=== PATIENT | male | born 1970 | race Caucasian/White ===

== ENCOUNTER 2022-06-01 12:54 | Outpatient (CLI) | payer MEDICAID, SELFPAY ==
--- NOTE | ~2022-06-01 | XR_ITS ---
EXAMINATION: XR shoulder RT min 2V INDICATION: Right shoulder pain TECHNIQUE: Four views of the right shoulder are submitted. COMPARISON: 03/10/2008 FINDINGS: Normal alignment. No fracture. There is mild osteoarthritis of the acromioclavicular joint. Soft tissues are unremarkable. IMPRESSION: 1. Mild osteoarthritis without acute osseous abnormality. Reviewed, dictated and finalized at location B.
== END 2022-06-01 12:55 | disposition home or self-care (01) ==
PROVIDERS: PCP Nurse Practitioner Adult Health; Visit Provider Nurse Practitioner Adult Health
DX: M25.511 Pain in right shoulder (principal); M19.011 Primary osteoarthritis, right shoulder
CPT/HCPCS: 73030

== ENCOUNTER 2022-06-14 16:07 | Outpatient (CLI) | payer OTHER, SELFPAY ==
--- NOTE | ~2022-06-14 | CT_ITS ---
EXAMINATION: CT shoulder RT wo con DATE: 06/14/2022 16:33 INDICATION: Right shoulder pain. TECHNIQUE: Computed tomography (CT) of the right shoulder was performed without intravenous contrast. Automated exposure control and iterative reconstruction technique were employed. The dose-length pro duct was 593.09 mGy-cm. COMPARISON: Right shoulder radiographs 06/01/2022 FINDINGS: Bone alignment is normal. No fracture. There is mild osteoarthritis of glenohumeral joint a nd moderate osteoarthritis of acromioclavicular joint. The musculature is normal. IMPRESSION: 1. Polyarticular osteoarthritis. Reviewed, dictated and finalized at location A.
== END 2022-06-14 16:08 | disposition home or self-care (01) ==
PROVIDERS: PCP Nurse Practitioner Adult Health; Visit Provider Nurse Practitioner Adult Health
DX: M19.011 Primary osteoarthritis, right shoulder (principal)
CPT/HCPCS: 73200

== ENCOUNTER 2022-06-28 17:23 | Outpatient (CLI) | payer OTHER, SELFPAY ==
--- NOTE | ~2022-06-28 | CT_ITS ---
EXAMINATION: CT abdomen pelvis wo con DATE: 06/28/2022 17:43 INDICATION: Incisional hernia without obstruction or gangrene TECHNIQUE: Computed tomography (CT) of the abdomen and pelvis was performed without intravenous contr ast. The dose-length product (DLP) was 362.57 mGy-cm. Automated exposure control and iterative recons truction technique were employed. COMPARISON: None FINDINGS: The lung bases are clear. The heart size is normal. Within the limitations of noncontrast e xamination, the liver, spleen, pancreas, gallbladder, and adrenal glands are normal. The kidneys are unremarkable. No pathologically enlarged abdominal or pelvic lymph nodes are identified. There is no free intraperitoneal gas or evidence of bowel obstruction. There are surgical clips adjacent to the r ight kidney. There is a midline epigastric hernia containing fat with an approximately 11 mm neck loc ated 6 cm above the umbilicus. There is a midline ventral hernia with a 2.1 cm neck located 2.4 cm ab ove the umbilicus. There is a tiny midline ventral hernia containing fat just above the umbilicus wit h a 2 mm neck. There is a tiny umbilical hernia containing fat. There is mild lumbar spondylosis. IMPRESSION: 1. Fat-containing midline ventral hernias as detailed above. Reviewed, dictated and finalized at location D.
== END 2022-06-28 17:24 | disposition home or self-care (01) ==
LOC: ANHIMG 17:28
PROVIDERS: PCP Nurse Practitioner Adult Health; Visit Provider Surgery
DX: K43.2 Incisional hernia without obstruction or gangrene (principal); K43.9 Ventral hernia without obstruction or gangrene; K42.9 Umbilical hernia without obstruction or gangrene
CPT/HCPCS: 74176

== ENCOUNTER 2022-07-05 00:24 | Day surgery (SDC) | payer OTHER, SELFPAY ==
[2022-06-23 13:54] VITALS: BMI 25.2
[2022-07-05 10:02] VITALS: BP 116/61; PULSE 52; RESP 16; TEMP 36.4; O2SAT 100; BMI 26.4
--- NOTE | 2022-07-05 10:05 | WPDANESEPPF ---
Anes - Initial Pre Proc Eval Procedure: Operation Date: 07/05/22 11:15 Proposed Procedures p Screening Colonoscopy - Nash Simmons MD Date/Time: 07/05/22 10:05 Surgeon: Nash Simmons MD Pre Op Diagnosis: neoplasm screening Patient Data Age: 51 Gender: M Height: 1.78 m Weight: 83.6 kg Last Vital Signs Temp 36.4 C 07/05/22 10:02 Pulse 52 L 07/05/22 10:02 Resp 16 07/05/22 10:02 BP 116/61 07/05/22 10:02 Pulse Ox 100 07/05/22 10:02 O2 Del Method Room Air 07/05/22 10:02 Allergies Allergy/AdvReac Type Severity Reaction Status Date / Time No Known Allergies Allergy Verified 07/05/22 10:01 Home Medications Medication Instructions Recorded Confirmed Type syringe with needle 3 mL 25 gauge 06/23/22 07/05/22 History x 1 (BD Luer-Randy Syringe) Patient hx anesthesia problems: none Family hx anesthesia problems: none Results Review: All pre-operative results and documents have been reviewed as part of the pre-operative evaluation. [facility] Past Medical History Medical History Abdominal pain Allergies Anxiety Colon cancer screening Dysphagia History of blood transfusion Ventral hernia Surgical History Surgical History Elbow injury History of kidney surgery R History of laparotomy Family History Family History Father Hypertension Heart disease Parkinsons COPD (chronic obstructive pulmonary disease) Diabetes mellitus Social History Social History Social History: everyday caffeine use- 2 cups of coffee daily Years smoked: 5 Smoking status: Former smoker Tobacco type: cigarettes Alcohol intake: never Substance use: never Substance use type: does not use Living arrangements: with family Additional living arrangements comments: Patient is . no children. Additional occupation/education comments: self-employed Gender identity (if verbalized by the patient): Male Sexual Orientation (if Verbalized by the Patient): Straight or Heterosexual Spiritual care concerns: No Anes - Eval Final PreProcedure Day of Procedure 07/05/22 10:05 Patient weight: overweight Heart: regular rate and rhythm Lungs: clear to auscultation and normal air movement Airway: Mallampati scale class II Neurological: alert and oriented Last oral intake: >/= 8 hours ASA classification: II Emergent: no Anesthetic plan: proceed Anesthesia type and monitoring: general GIVS Results Review: All pre-operative results and documents have been reviewed as part of the pre-operative evaluation. Informed Consent: The patient's anesthetic plan and its attendant risks and benefits were discussed with the patient/family/POA. Questions were solicited and answers provided to the satisfaction of the patient/family/POA.
[2022-07-05] MEDS: LACTATED RINGERS 1,000 ML 150 ML IV CONT (10:14)
--- NOTE | 2022-07-05 10:22 | WPDHPUPDATE1 ---
History and Physical Update Update Date/Time: 07/05/22 10:22 History and Physical has been reviewed, including an updated exam of the patient. There are NO changes in the patient's condition. Risks, benefits, and alternatives have been discussed and questions answered. Patient agrees to proceed with procedure.
[2022-07-05 10:39] VITALS: BP 107/66; PULSE 60; RESP 16; O2SAT 99
[2022-07-05 10:49] VITALS: BP 104/53; PULSE 54; RESP 17; O2SAT 100
[2022-07-05 10:59] VITALS: BP 119/57; PULSE 57; RESP 14; O2SAT 100
== END 2022-07-05 11:04 | disposition home or self-care (01) ==
PROVIDERS: PCP Nurse Practitioner Adult Health; Visit Provider Internal Medicine Gastroenterology
PROC: 0DJD8ZZ Inspection of Lower Intestinal Tract, Via Natural or Artificial Opening Endoscopic (ICD-10-PCS; CPT 45378; principal; 2022-07-05 11:15)
DX: Z12.11 Encounter for screening for malignant neoplasm of colon (principal); K64.8 Other hemorrhoids; F41.9 Anxiety disorder, unspecified; R13.10 Dysphagia, unspecified; Z87.891 Personal history of nicotine dependence; K43.9 Ventral hernia without obstruction or gangrene
CPT/HCPCS: 45378; J2704; J7120

== ENCOUNTER 2022-09-15 14:35 | Observation (INO) | payer OTHER, SELFPAY ==
[2022-09-08 10:55] VITALS: BMI 24.3
--- NOTE | 2022-09-08 11:00 | PC.NURSE ---
Report to the Outpatient Waiting Room, entrance under the green pavilion located off [facility], at time 0630 on date 09/14/22. Planned Procedure Time: 0830. Time changes happen often and if your time is changed the preop area will call you the afternoon before. - You and your visitor will be asked to self-screen and do not enter if you have any COVID symptoms. - We encourage only one visitor and NO visitors under age 16 are allowed at this time. Your visitor will receive communication by the phone number that is given day of service. - The patient visitor is requested to social distance or may leave the building when not with patient due to restrictions. - A mask is OPTIONAL within the hospital. Patients may have clear liquids (water, carbonated beverages, clear teas, apple juice) until 3 hours prior to surgery with a maximum of 20 ounces. - No food from midnight until time of surgery Take the following medications with a SIP of water the morning of surgery: NONE Medications to discontinue per physician: VITAMINS Date to take last dose: 09/10/22 Please no make-up, nail jordanian, hairspray, perfume, deodorant, or body powder the day of surgery. No jewelry (including any body piercings) or valuables the day of surgery, leave them at home. Please take a shower or bath the night before, or the morning of, surgery with an antibacterial soap (HIBICLENS). Wear comfortable, loose fitting clothing. - Jewelry must be removed prior to entering the operating room. Rings and piercings that are not removed may be cut off. - The hospital will not accept responsibility for valuables. - Please leave all valuables, including medications, at home the day of surgery. If you are going home after surgery, a licensed coach tour driver must drive you home. - NO public transportation without another adult. - We recommend that an adult stay with you for 24 hours following discharge. - We also recommend that you do not drive, make important decision, drink alcoholic beverages, or take any drugs that were not prescribed by your health care provider for at least 24 hours after your discharge time. Follow any additional instructions given to you from your surgeon. If you or anyone in your household have experienced Covid symptoms in the past week, please notify your surgeon or the nurse liaison at the phone number below for possible testing. Telephone instructions given to PT & and asked if any additional questions and then verbalized understanding. Patient advised to call surgeon office or pre surgery nurse liaison [phone] if any additional questions.
--- NOTE | 2022-09-13 14:43 | WPDANESEPPF ---
Anes - Initial Pre Proc Eval Procedure: Operation Date: 09/14/22 08:30 Proposed Procedures p Laparoscopic Incisional Hernia Repair with Mesh, Davinci Assisted - Clive Moe DO Date/Time: 09/13/22 14:43 Surgeon: Clive Moe DO Pre Op Diagnosis: incisional hernia Patient Data Age: 51 Gender: M Height: 1.78 m Weight: 77.11 kg Allergies Allergy/AdvReac Type Severity Reaction Status Date / Time No Known Allergies Allergy Verified 09/14/22 07:12 Home Medications Medication Instructions Recorded Confirmed Type multivitamin 1 tablet PO DAILY 08/12/22 09/14/22 History Patient hx anesthesia problems: none Family hx anesthesia problems: none Results Review: All pre-operative results and documents have been reviewed as part of the pre-operative evaluation. [facility] Past Medical History Medical History Abdominal pain Allergies Anxiety Colon cancer screening Dysphagia History of blood transfusion Ventral hernia Surgical History Surgical History Elbow injury History of kidney surgery R History of laparotomy Family History Family History (Updated 08/24/22 @ 08:25 by Judith Mtz) Father Hypertension Heart disease Parkinsons COPD (chronic obstructive pulmonary disease) Diabetes mellitus Other Arthritis Asthma HLD (hyperlipidemia) Neuropathy Social History Social History (Updated 08/24/22 @ 08:26 by Judith Mtz) Social History: everyday caffeine use- 2 cups of coffee daily Years smoked: 5 Smoking status: Former smoker Tobacco type: cigarettes Smoking end date: 11/07/06 Additional smoking assessment comments: SOCIAL SMOKER IN PAST Alcohol intake: never Substance use: never Substance use type: does not use Living arrangements: with family Additional living arrangements comments: Patient is . no children. Additional occupation/education comments: self-employed Gender identity (if verbalized by the patient): Male Sexual Orientation (if Verbalized by the Patient): Straight or Heterosexual Spiritual care concerns: No Anes - Eval Final PreProcedure Day of Procedure 09/13/22 14:43 Patient weight: normal Heart: regular rate and rhythm Lungs: clear to auscultation Airway: Mallampati scale class II Neurological: alert and oriented Last oral intake: >/= 8 hours ASA classification: II Emergent: no Anesthetic plan: proceed Anesthesia type and monitoring: general ETT and standard monitoring Results Review: All pre-operative results and documents have been reviewed as part of the pre-operative evaluation. Informed Consent: The patient's anesthetic plan and its attendant risks and benefits were discussed with the patient/family/POA. Questions were solicited and answers provided to the satisfaction of the patient/family/POA.
[2022-09-14] VITALS (18 sets, daily range): BP systolic 125–175; BP diastolic 64–105; PULSE 51–78; RESP 12–20; TEMP 36.8–37.2; O2SAT 95–100
[2022-09-14] MEDS: LACTATED RINGERS 1,000 ML 30 ML IV CONT ×4 (07:00→11:49)
[2022-09-14] MEDS: ACETAMINOPHEN 500 MG TABLET 1000 MG PO (07:01)
[2022-09-14] MEDS: KETOROLAC 15 MG/ML VIAL (*BKC) IV PUSH (07:02)
--- NOTE | 2022-09-14 08:25 | WPDHPUPDATE1 ---
History and Physical Update Update Date/Time: 09/14/22 08:25 History and Physical has been reviewed, including an updated exam of the patient. There are NO changes in the patient's condition. Risks, benefits, and alternatives have been discussed and questions answered. Patient agrees to proceed with procedure.
--- NOTE | 2022-09-14 08:26 | PM.IMHP ---
H&P: HPI History of Present Illness Date/Time: 09/14/22 08:26 Chief Complaint: incisional hernia Narrative: 51 yo man presents for incisional hernia repair. He denies any changes since last seen in office. Review of Systems Review of Systems: All systems reviewed & are unremarkable except as noted in HPI and below Constitutional: Constitutional: Denies chills, Denies fever(s), Denies headache(s) and Denies weight loss Eyes: Eyes: Denies change in vision ENT: Denies dizziness, Denies headache(s), Denies neck mass and Denies throat swelling Cardiovascular: Cardiovascular: Denies chest pain, Denies lightheadedness and Denies dyspnea Respiratory: Respiratory: Denies cough, Denies dyspnea and Denies wheezing Gastrointestinal: Gastrointestinal: Denies abdominal pain, Denies change in bowel habits, Denies nausea and Denies vomiting Genitourinary: Genitourinary: Denies hematuria and Denies dysuria Musculoskeletal: Musculoskeletal: Reports as per HPI Integumentary/Breasts: Skin/Breast: Reports as per HPI Neurologic: Denies dizziness and Denies headache(s) Allergic/Immunologic: Allergic/Immunologic: Denies throat swelling and Denies wheezing PMFSH Past Medical History Medical History Abdominal pain Allergies Anxiety Colon cancer screening Dysphagia History of blood transfusion Ventral hernia Surgical History Surgical History Elbow injury History of kidney surgery R History of laparotomy Family History Family History (Updated 08/24/22 @ 08:25 by Judith Mtz) Father Hypertension Heart disease Parkinsons COPD (chronic obstructive pulmonary disease) Diabetes mellitus Other Arthritis Asthma HLD (hyperlipidemia) Neuropathy Social History Social History (Updated 08/24/22 @ 08:26 by Judith Mtz) Social History: everyday caffeine use- 2 cups of coffee daily Years smoked: 5 Smoking status: Former smoker Tobacco type: cigarettes Smoking end date: 11/07/06 Additional smoking assessment comments: SOCIAL SMOKER IN PAST Alcohol intake: never Substance use: never Substance use type: does not use Living arrangements: with family Additional living arrangements comments: Patient is . no children. Additional occupation/education comments: self-employed Gender identity (if verbalized by the patient): Male Sexual Orientation (if Verbalized by the Patient): Straight or Heterosexual Spiritual care concerns: No Meds Home Medications and Allergies Home Medications Medication Instructions Recorded Confirmed Type multivitamin 1 tablet PO DAILY 08/12/22 09/14/22 History Allergies Allergy/AdvReac Type Severity Reaction Status Date / Time No Known Allergies Allergy Verified 09/14/22 07:12 Vital Signs Vital Signs - 24 hr 09/14/22 06:44 Temperature 36.8 C Pulse Rate 62 Respiratory Rate 16 Blood Pressure 127/65 Pulse Oximetry 99 Oxygen Delivery Room Air Exam Const: General: no acute distress and alert Orientation/consciousness: patient oriented x3 HENMT: Head: normocephalic and atraumatic Ears: hearing grossly normal bilaterally Face/Nose/Sinus: Normal nares present Mouth: Yes Normal oral and palatal mucosa present Eyes: Periorbital: periorbital findings normal Sclera: sclerae normal EOM: EOMs intact bilaterally Neck: Neck: normal visual inspection, no lymphadenopathy and trachea midline Chest: Chest palpation & inspection: normal inspection of the chest Resp: Effort & Inspection: normal respiratory effort Auscultation: clear to auscultation bilaterally Cardio: Jugular venous distension: no JVD Rate: regular rate Rhythm: regular rhythm Heart sounds: S1 normal heart sound present and S2 normal heart sound present Peripheral pulses: Peripheral pulses 2+ throughout GI: Inspection: normal to inspecti
[2022-09-14] MEDS: ceFAZolin 2 GM/D5W 50 ML 2 GM/50 ML BAG IVPB (08:34)
--- NOTE | 2022-09-14 10:54 | W.PM.PROC2 ---
Procedure Note - Detailed Date of Procedure 09/14/22 Pre-op Diagnosis incisional hernia Post-op Diagnosis Same Procedure Performed Laparoscopic Incisional Hernia Repair with Mesh, da Charlene assisted Surgeon Clive Moe DO Anesthesia General and Local (Exparel) Indications This is a 51-year-old man who presented with an abdominal bulge that he had noticed over the past few years. This is getting slightly larger and was becoming more symptomatic with heavy physical activity. He has a history of exploratory laparotomy as a 12-year-old for a trauma. A CT of his abdomen and pelvis was obtained and this showed evidence of multiple small hernias in the supraumbilical ventral region in the area of his scar. Discussions were made with the patient about treatment options and decision was made to proceed with robotic assisted laparoscopic incisional hernia repair with mesh. Findings Laparoscopic incisional hernia repair was performed. Patient was found to have some omental adhesions from his prior laparotomy, but there did not appear to be any bowel going up to the hernias. There was omentum within the hernia defects but this came down with careful blunt dissection. He had 3 small hernias midline supraumbilical region. The hernias range from 1-2 cm in size and spanned a distance of about 7 cm from just above the umbilicus to the upper midline. The hernia defects were closed using 0 Stratafix running absorbable suture and then a 15 cm x [address] mesh was placed within the abdominal cavity and secured to the perimeter using 2 0 V lock running absorbable suture. No specimens were obtained for pathology. Description of Procedure Procedure as well as risks, benefits, and alternatives were discussed with the patient. Written consent was obtained and placed in chart prior to procedure. Patient was brought back to surgical suite. He was placed supine on operating table. Time-out was done to confirm patient and procedure. He was then intubated by the anesthesia department. A bump was placed under his left hip, and the bed was flexed slightly to extend the space between his costal margin and iliac crest. His abdomen was prepped and draped in sterile fashion using chlorhexidine prep. A 5 millimeter incision was made in the left upper quadrant, and a 5 millimeter Optiview trocar was advanced through the abdominal layers under direct visualization. Once inside the abdominal cavity, carbon dioxide insufflation was used to create a pneumoperitoneum. His abdomen was inspected. An 8 millimeter incision was made in the left lower quadrant, and an 8 millimeter robotic trocar was placed under direct visualization. Another 8 millimeter incision was made in the left lateral abdomen, and an 8 millimeter robotic trocar was placed under direct visualization. Exparel was infiltrated along the lateral abdominal haines to perform a transversus abdominis plane block bilaterally. The 5 millimeter port was removed, the incision was extended to 12 millimeters, and a 12 millimeter air seal port was placed under direct visualization. A Jaron-Smith cone was also used to place an 0-Vicryl simple interrupted suture at this trocar site. The robotic arms were brought up to the patient's bedside and secured to the ports. The camera and instruments were inserted, and I then moved over to the robotic console and took control of the camera and instruments. After careful thorough inspection of the abdominal cavity, I began my dissection at the hernia.The adhesions around the abdominal wall were carefully taken down using scissors with electrocautery. The herniated omentum was reduced from within the hernia defect. The falciform ligament was then also taken down several cm cephalad to adequately visualize the abdominal wall. I then measured the hernia size. there were 3 hernias in the supraumbilical midline region measuring 1 to 2 cm wide all 3 hernias were within a distance of a
[2022-09-14] MEDS: fentaNYL CITRATE INJ (*CRX) 100 MCG/2 ML VIAL 25 MCG IV PUSH ×8 (11:15→13:01)
[2022-09-14] MEDS: HYDROmorphone HCL INJ (*CRX) 1 MG/ML SYR 0.5 MG IV PUSH ×6 (11:27→12:15)
[2022-09-14] MEDS: oxyCODONE HCL (*CRX) 5 MG TAB IR PO (12:28)
[2022-09-14] MEDS: KETOROLAC 30 MG/ML VIAL (*BKC) IV PUSH (14:07)
--- NOTE | 2022-09-14 16:00 | SUR.PHASEII ---
1520 - dr. martinez at bedside assessing pt.
[2022-09-14] MEDS: HYDROcodone/acetaminophen (*CRX) 5-325 MG TABLET 2 TAB PO ×2 (17:13→21:05)
[2022-09-14] MEDS: LACTATED RINGERS 1,000 ML 100 ML IV CONT (17:14)
[2022-09-14] MEDS: HYDROcodone/acetaminophen (*CRX) 5-325 MG TABLET 1 TAB PO (22:45)
[2022-09-15] VITALS (10 sets, daily range): BP systolic 134–175; BP diastolic 72–95; PULSE 51–94; RESP 16–20; TEMP 36.6–36.9; O2SAT 93–99
[2022-09-15] MEDS: HYDROcodone/acetaminophen (*CRX) 5-325 MG TABLET 1 TAB PO (07:54)
[2022-09-15 08:23] LABS: Glucose Point of Care 105 mg/dl (65-105)
--- NOTE | 2022-09-15 09:51 | PM.PNGS ---
Progress Note: A&P Assessment and Plan (1) Incisional hernia: Code(s): K43.2 - Incisional hernia without obstruction or gangrene Status: Acute Assessment and Plan: Still working with pain control for patient to be able to control pain once discharged. Will place patient on scheduled ibuprofen and acetaminophen. PRN Oxycodone. Will also check CBC and BMP due to lightheadedness and severe pain. (2) Postoperative pain: Code(s): G89.18 - Other acute postprocedural pain Status: Acute (3) Panic attacks: Code(s): F41.0 - Panic disorder [episodic paroxysmal anxiety] Status: Acute Assessment and Plan: Diazepam prn anxiety Subjective Subjective Date/Time Seen: 09/15/22 09:51 Interval history: Patient still having a lot of pain. Also felt very lightheaded when he got up to go to the bathroom. He does state that he has a lot of problems with panic attacks and anxiety. His abdomen around the hernia sites is very tender to the touch. Exam GI: Inspection: non-distended and incision (intact with glue) GI Palp: Yes Tenderness to palpation present (GI) (supraumbilical at hernia repair site) Objective Data Vital Signs Vital Signs: Vital Signs - 24 hr 09/14/22 11:05 09/14/22 11:20 09/14/22 11:35 Temperature 37.2 C Pulse Rate 51 L 56 L 52 L Respiratory Rate 12 12 12 Blood Pressure 156/105 H 125/93 H 144/95 H Pulse Oximetry 100 100 98 Oxygen Delivery Simple Face Mask Simple Face Mask Room Air Oxygen Flow Rate 8 8 09/14/22 11:50 09/14/22 12:05 09/14/22 12:09 Temperature Pulse Rate 70 74 64 Respiratory Rate 16 18 12 Blood Pressure 146/69 H 146/72 H 164/71 H Pulse Oximetry 95 95 Oxygen Delivery Room Air Room Air Room Air Oxygen Flow Rate 09/14/22 12:30 09/14/22 13:00 09/14/22 13:30 Temperature Pulse Rate 60 65 68 Respiratory Rate 12 20 20 Blood Pressure 154/86 H 154/86 H 138/67 Pulse Oximetry Oxygen Delivery Room Air Room Air Room Air Oxygen Flow Rate 09/14/22 14:00 09/14/22 14:30 09/14/22 15:45 Temperature Pulse Rate 74 78 72 Respiratory Rate 20 20 20 Blood Pressure 144/75 H 167/88 H 156/72 H Pulse Oximetry Oxygen Delivery Room Air Room Air Room Air Oxygen Flow Rate 09/14/22 16:02 09/14/22 17:36 09/14/22 18:07 Temperature 36.8 C 37.1 C Pulse Rate 63 62 Respiratory Rate 20 20 18 Blood Pressure 175/84 H 127/64 Pulse Oximetry 99 99 98 Oxygen Delivery Room Air Oxygen Flow Rate 09/14/22 20:45 09/14/22 20:48 09/15/22 00:02 Temperature 36.8 C 36.8 C 36.8 C Pulse Rate 65 65 61 Respiratory Rate 18 18 18 Blood Pressure 138/72 138/72 137/72 Pulse Oximetry 95 95 98 Oxygen Delivery Oxygen Flow Rate 09/15/22 03:46 09/15/22 03:48 09/15/22 08:00 Temperature 36.6 C 36.6 C Pulse Rate 94 94 Respiratory Rate 20 20 Blood Pressure 145/77 H 145/77 H Pulse Oximetry 97 97 93 Oxygen Delivery Room Air Oxygen Flow Rate Intake/Output Intake/Output: Intake & Output 09/12/22 09/13/22 09/14/22 09/15/22 23:59 23:59 23:59 23:59 Intake Total 2630 1508 Output Total 1200 Balance 2630 308 Meds/Results Medications: Active Medications Generic Name Dose Route Start Last Admin Trade Name Freq PRN Reason Stop Dose Admin Acetaminophen 1,000 mg 09/15/22 09:50 Acetaminophen 500 Mg Tablet PO Q6H [facility] Hydromorphone HCl 0.5 mg 09/14/22 16:02 Hydromorphone Hcl Inj (*Crx) 1 Mg/Ml Syr IV PUSH Q2H PRN Pain Rated 4-6 Hydromorphone HCl 1 mg 09/14/22 16:02 Hydromorphone Hcl Inj (*Crx) 1 Mg/Ml Syr IV PUSH Q2H PRN Pain Rated 7-10 Ibuprofen 800 mg 09/15/22 09:50 Ibuprofen 400 Mg Tablet PO Q8H [facility] Ondansetron HCl 4 mg 09/14/22 16:02 Ondansetron Inj 4 Mg/2 Ml Vial IV PUSH Q4H PRN Nausea And Vomiting Oxycodone HCl 5 mg 09/15/22 09:48 Oxycodone Hcl (*Crx) 5 Mg Tab Ir PO Q4H PRN Pain Rated 4-6 Oxycodone HCl 10 mg
[2022-09-15 10:10] LABS: Hematocrit 49.5 % (42.0-52.0); Hemoglobin 17.2 g/dL (14.0-18.0); Mean Corpuscular HGB Conc 34.7 g/dl (32-36); Mean Corpuscular Hemoglobin 31.2 pg (26-34); Mean Corpuscular Volume 89.7 fl (80-100); Mean Platelet Volume 10.4 fl (7.4-10.4); Platelet Count Result 91 k/mm3 (150-375); Red Blood Count 5.52 M/mm3 (4.6-6.20); White Blood Count 5.5 K/mm3 (4.5-10.0)
[2022-09-15] MEDS: ACETAMINOPHEN 500 MG TABLET 1000 MG PO ×3 (10:18→21:47)
[2022-09-15] MEDS: IBUPROFEN 400 MG TABLET 800 MG PO ×2 (10:19→17:33)
[2022-09-15 10:22] LABS: Anion Gap 11 mmol/L (8-16); Blood Urea Nitrogen 11 mg/dL (9-20); Calcium 7.9 mg/dL (8.4-10.2); Carbon Dioxide 26 mmol/L (22-30); Chloride 101 mmol/L (98-107); Estimated CRCL calculation 62 ml/min; Estimated Glomerular Filt Rate 58; Glucose 114 mg/dL (65-110); Potassium 3.5 mmol/L (3.4-5.0); Sodium 138 mmol/L (137-145)
[2022-09-15] MEDS: polyethylene glycoL 3350 17 GM POWD.PACK PO (12:42)
--- NOTE | 2022-09-15 13:03 | WPDANESPN ---
Anes - Prog Note Post-Op Date/Time: 09/15/22 13:03 Cardiovascular status: normal Respiratory status: normal Airway patency: baseline Mental status: baseline Post-Op hydration status: normal Vital Signs: Last Vital Signs Temp 36.9 C 09/15/22 11:02 Pulse 67 09/15/22 11:02 Resp 20 09/15/22 11:02 BP 175/95 H 09/15/22 11:02 Pulse Ox 99 09/15/22 11:02 O2 Del Method Room Air 09/15/22 08:00 O2 Flow Rate 8 09/14/22 11:20 Pain Score (VAS): 0 at rest 10 with the slightest movement I/O: Intake & Output 09/14/22 09/15/22 09/15/22 23:59 07:59 15:59 Intake Total 480 1390 118 Output Total 1200 Balance 480 190 118 Laboratory Tests 09/15/22 10:02 09/15/22 10:02 09/15/22 09/15/22 09/15/22 08:20 10:02 10:02 WBC 5.5 RBC 5.52 Hgb 17.2 Hct 49.5 MCV 89.7 MCH 31.2 MCHC 34.7 RDW 12.0 Plt Count 91 L MPV 10.4 % Immature Plt Fraction 4.0 Sodium 138 Potassium 3.5 Chloride 101 Carbon Dioxide 26 Anion Gap 11 BUN 11 Creatinine 1.30 Estim Creat Clear Calc 62 Estimated GFR 58 L Glucose 114 H POC Capillary Glucose 105 Calcium 7.9 L Post-procedural complaints: other Patient Feedback: Patient satisfied with anesthetic care. Patient said the pain is just unbelievable with the slightest movement and especially when he has to get up. He stated he got very nauseous and almost passed out when he had to get up to the bathroom. He is receiving PO pain meds which he said helps if he is not moving around.
--- NOTE | 2022-09-15 14:14 | PC.NURSE ---
On 09/15/22, the student, [Sheree Edwards], provided care and completed [email or web address] on this patient. I have reviewed the student's documentation and agree with the findings.
[2022-09-15] MEDS: oxyCODONE HCL (*CRX) 5 MG TAB IR 10 MG PO (14:37)
[2022-09-15] MEDS: diazePAM (*CRX) 5 MG TABLET PO (20:10)
[2022-09-16 02:00] VITALS: BP 133/70; PULSE 58; RESP 18; TEMP 36.9; O2SAT 97
[2022-09-16] MEDS: IBUPROFEN 400 MG TABLET 800 MG PO ×2 (02:15→09:46)
[2022-09-16] MEDS: ACETAMINOPHEN 500 MG TABLET 1000 MG PO ×2 (05:22→09:46)
[2022-09-16 06:00] VITALS: BP 129/75; PULSE 58; RESP 14; TEMP 36.8; O2SAT 98
--- NOTE | 2022-09-16 09:31 | PM.DS ---
DS: Admitting Diagnosis Discharge Date 09/16/22 Admitting Diagnosis incisional hernia DS: Discharge Diagnosis Discharge Diagnosis (1) Incisional hernia: Code(s): K43.2 - Incisional hernia without obstruction or gangrene Status: Acute (2) Postoperative pain: Code(s): G89.18 - Other acute postprocedural pain Status: Acute (3) Panic attacks: Code(s): F41.0 - Panic disorder [episodic paroxysmal anxiety] Status: Acute DS: Summary Hospital Course Reason for hospitalization: incisional hernia Hospital Course: this is a 51 old man who presented for laparoscopic incisional hernia repair with mesh, de Cahrlene assisted on 09/14/2022. Surgery was uncomplicated, but patient was having significant pain in recovery. He required multiple rounds of IV pain meds but was still having trouble with adequate control to be able to go home. He was then placed in the hospital postoperatively for closer monitoring and continued pain control with IV and oral pain medications. On postop day 1 he was still having a significant amount of pain and he also felt very lightheaded when getting up to go to the bathroom. A CBC and CMP was checked to ensure that he did not have any signs of significant anemia or electrolyte disturbances. He was placed on scheduled ibuprofen and acetaminophen with p.r.n. oxycodone. He was also given diazepam as needed for anxiety or muscle spasm. He took the diazepam at night to help him sleep and on postop day 2 he stated that he was feeling much better and was able to get a decent night's sleep. The pain control was much better at this time as well. He was remaining hemodynamically stable. He was discharged on postop day 2. Status at Discharge Functional status at discharge: independent ambulation Overall status at discharge: patient is progressing back to baseline Time Spent with Patient Time attestation: Total time spent providing and/or coordinating discharge services: Time spent: Less than 30 minutes Exam Const: General: cooperative and no acute distress Orientation/consciousness: patient oriented x3 Resp: Effort & Inspection: normal respiratory effort Auscultation: clear to auscultation bilaterally Cardio: Rate: regular rate Rhythm: regular rhythm GI: Inspection: non-distended and incision ( Intact with glue) GI Palp: Yes Soft to palpation, Yes Tenderness to palpation present (GI) ( around the hernia site and incisions) and No Guarding due to palpation present (GI) Auscultation: normal bowel sounds Discharge Plan Discharge Attending physician on discharge: Clive Alas Consulting providers: [facility] ; Kat Tesfaye Discharging Clinician: Clive Alas Patient Disposition: Home, Self-Care Activity: other - see discharge instructions Diet: regular Wound Care Instructions: other - see discharge instructions Discharge Instructions: DISCHARGE INSTRUCTION SHEET FOR HERNIA, GALLBLADDER AND APPENDIX SURGERIES DR. ALAS PATIENT TO TAKE HOME 1. May shower in 24 hours, no soaking in bath x 2weeks. 2. Call office for: Wound increasingly painful or bleeding Vomiting Fever of greater than 101 degrees 3. If no bowel movement for three days, take 1 oz. (30 ml) Milk of Magnesia or MiraLax 17g 1 to 2 times daily. 4. No heavy lifting > 10-15 pounds x 6-8 weeks for hernia repairs and 2 weeks for laparoscopic cholecystectomy or appendectomy. 5. No driving for 3 days or while taking narcotic pain medications. 6. Ice to surgical site for 48 hours (30 min on, then 30 min off). 7. Up walking 10-30 minutes three times per day. 8. Resume previous home medications. 9. Follow-up 10-14 days in office for wound check or as previously scheduled. ([phone]) 10. Oral pain medications prescription to be sent to pharmacy. Take Tylenol 500mg every 6 hours and Ibuprofen 600mg every
[2022-09-16] MEDS: polyethylene glycoL 3350 17 GM POWD.PACK PO (09:46)
== END 2022-09-16 10:22 | disposition home or self-care (01) ==
LOC: ANHSURGERY 14:42 → ANH2MED 14:42
PROVIDERS: Admitting Provider Surgery; PCP Nurse Practitioner Adult Health; Visit Provider Surgery
PROC: (CPT 49654; principal; 2022-09-14 08:30)
DX: K43.2 Incisional hernia without obstruction or gangrene (principal); G89.18 Other acute postprocedural pain; F41.0 Panic disorder [episodic paroxysmal anxiety]; Z87.898 Personal history of other specified conditions; Z87.891 Personal history of nicotine dependence; Z79.899 Other long term (current) drug therapy
CPT/HCPCS: 49654; S2900; 36415; 80048; 82948; 85027; 85055; 86850; 86900; 86901; A9270; C1781; C9290; G0378; G0379; J0690; J1100; J1170; J1885; J2250; J2405; J2704; J2710; J3010; J7120

== ENCOUNTER 2023-08-25 14:40 | Outpatient (CLI) | payer OTHER, SELFPAY ==
--- NOTE | ~2023-08-25 | US_ITS ---
EXAMINATION: US renal BI DATE: 08/25/2023 15:42 INDICATION: Chronic kidney disease, history of right partial nephrectomy. TECHNIQUE: Multiple grayscale and Doppler ultrasound images of the kidneys were obtained. COMPARISON: None. FINDINGS: The right kidney measures 7.3 x 4 x 4.8 cm. The left kidney measures 12.7 x 5.0 x 6.3 cm. T he kidneys demonstrate normal parenchymal echogenicity. There is no hydronephrosis. The bladder is no rmal. IMPRESSION: 1. Findings consistent with right partial nephrectomy, otherwise normal kidneys without hydronephrosi s. Reviewed, dictated and finalized at location F. IMPRESSION: 1. Findings consistent with right partial nephrectomy, otherwise normal kidneys without hydronephrosis.
== END 2023-08-25 14:41 | disposition home or self-care (01) ==
PROVIDERS: PCP Nurse Practitioner Adult Health; Visit Provider Internal Medicine Nephrology
DX: I12.9 Hypertensive chronic kidney disease with stage 1 through stage 4 chronic kidney disease, or unspecified chronic kidney disease (principal); N18.31 Chronic kidney disease, stage 3a
CPT/HCPCS: 76775

== ENCOUNTER 2024-01-01 12:54 | Emergency (ER) | payer OTHER, SELFPAY ==
[2024-01-01 12:56] VITALS: BP 157/74; PULSE 85; RESP 16; TEMP 36.6; O2SAT 98
--- NOTE | 2024-01-01 13:55 | PC.NURSE ---
pt decided against waiting,
== END 2024-01-01 13:55 | disposition left against medical advice (07) ==
LOC: ANHED 14:31
PROVIDERS: PCP Nurse Practitioner Adult Health
DX: R36.9 Urethral discharge, unspecified (principal)
CPT/HCPCS: 99199

== ENCOUNTER 2024-04-03 07:45 | Outpatient (CLI) | payer OTHER, SELFPAY ==
--- NOTE | ~2024-04-03 | US_ITS ---
US abdomen complete EXAMINATION: US Abdomen Complete INDICATION: Liver disease. History of right partial nephrectomy. PROCEDURE: Realtime High Resolution abdomen ultrasound. COMPARISON: No prior studies for comparison FINDINGS: Gallbladder within normal limits. No gallstones, pericholecystic fluid, gallbladder wall t hickening or biliary dilatation. Common bile duct measures 3 mm. Liver echotexture within normal limits without focal mass. Pancreas within normal limits. Pancreati c tail is obscured by bowel gas. Spleen is unremarkeable. Renal echotexture is within normal limits bilaterally without hydronephrosis, contour deforming mass or renal stone. Right kidney measures 7.9 cm. Left kidney measures 14 cm. Visualized aspects of the aorta and IVC are within normal limits. Portal vein is patent. No sonograph ic Quick's sign indicated by the technologist. IMPRESSION: 1: Unremarkable abdominal ultrasound. There are changes of partial right nephrectomy. Reviewed, dictated and finalized at location B. IMPRESSION: 1: Unremarkable abdominal ultrasound. There are changes of partial right nephre ctomy.
== END 2024-04-03 07:46 | disposition home or self-care (01) ==
PROVIDERS: PCP Emergency Medicine; Visit Provider Emergency Medicine
DX: K76.9 Liver disease, unspecified (principal); Z90.5 Acquired absence of kidney
CPT/HCPCS: 76700